=== PATIENT | male | born 1960 | race Caucasian/White ===

== ENCOUNTER 2018-05-14 03:18 | Inpatient (IN) | payer OTHER ==
[2018-05-14] VITALS (7 sets, daily range): BP systolic 96–126; BP diastolic 54–100
[~2018-05-14] VITALS: Ht 177.8 cm; Wt 104.8 kg
--- NOTE | ~2018-05-14 | OP ---
[facility] [address] [place] [address] OPERATIVE REPORT Name: MAI WELLER Room: [address] IN .R.#: [id number] Admission: 05/14/18 Attend Phys: Saturnino Lieberman Discharge: Date of : 60 Report #: [id number] THIS REPORT FOR: //name// CC: [facility] Roberto Zheng DATE OF SERVICE: 05/14/2018 PREOPERATIVE DIAGNOSES: Right ureteropelvic junction stone, possible urinary tract infection. POSTOPERATIVE DIAGNOSES: Right ureteropelvic junction stone, possible urinary infection. PROCEDURE: Cystourethroscopy, right retrograde pyelogram and right ureteral stent placement (6 x 26). SURGEON: Radha Holley MD ANESTHESIA: General. ESTIMATED BLOOD LOSS: None. COMPLICATIONS: None. SPECIMENS: None. INDICATION FOR PROCEDURE: The patient is a 58-year-old male who presented with right flank pain. An 8 mm stone was seen at the right UPJ on CT scan. Although his white count was normal, his urinalysis was questionable for infection with some bacteria present. He had no renal dysfunction. Given his possible bladder infection, it was recommended he undergo stent placement only, with treatment of this infection with need for stone intervention at a later date after antibiotic treatment. Risks of procedure were discussed including but not limited to infection; bleeding; injury to the urethra, bladder, ureters; and need for secondary procedures; stent pain; cardiopulmonary complications. He voiced understanding and wishes to proceed. DESCRIPTION OF PROCEDURE: After informed consent was obtained, the patient was taken back to the operating suite and placed supine. After induction of general anesthesia, he was placed in dorsal lithotomy position. Genitalia were prepped and draped in standard fashion. Attempted to place the 22-Hungarian cystoscope, but he had some tightness in the fossa area; therefore, a Geary's were used to serially dilate from 18-Hungarian to 24-Hungarian without difficulty. I was then able to place the 22-Hungarian cystoscope without difficulty[place] [address] OPERATIVE REPORT Name: MAI WELLER Room: [address] IN [facility]#: [id number] Admission: 05/14/18 Attend Phys: Saturnino Lieberman Discharge: Date of : 60 Report #: [id number] normal. There was no stricture. Prostate was nonobstructive and short. Bladder was inspected. There were no tumors, stones or diverticula. There were no trabeculations. A retrograde was performed on the right side with a cone tip catheter. This revealed a filling defect in the proximal ureter and that stone did blow back, looks like into the kidney with the contrast jet. He did not really have significant hydronephrosis, maybe mild. A sensor wire was placed and there was efflux of some concentrated urine and debris, but did not appear frankly purulent. A 6-Hungarian x 26-cm double-J stent was threaded over the wire. Good curl was seen within the upper pole calyces and good curl was seen in the bladder. I did try to adjust the proximal curl into the renal pelvis, but there was not really a lot of room, so I left that alone. The bladder was then drained and the scope was removed and 5 mL of lidocaine jelly were placed per urethra for local anesthesia. He was awoken, extubated and taken to recovery in satisfactory condition. He will be admitted to the floor and if afebrile for 24 hours, he can be dismissed home on oral antibiotics and follow up with me to discuss stone treatment. By: [id number] Holley MD /nt
[~2018-05-14 03:18] MED LIST: ALDACTONE25 MG PO; ALDACTONE50 MG PO; BAYER CHEWABLE81 MG PO; BRILINTA90 MG PO; CARVEDILOL12.5 MG PO; CRESTOR20 MG PO; LISINOPRIL10 MG PO; NITROGLYCERIN0.4 MG SL
[2018-05-14 04:12] LABS: ABSOLUTE BASOPHILS 0.1 thou/uL (0.0-0.2); ABSOLUTE EOSINOPHILS 0.2 thou/uL (0.0-0.7); ABSOLUTE MONOCYTES 0.8 thou/uL (0.0-1.2); ABSOLUTE NEUTROPHILS 2.9 thou/uL (1.6-8.1); BASOPHILS 1.4 %; EOSINOPHILS 3.7 %; HEMOGLOBIN 15.1 gm/dL (14.0-18.0); LYMPHOCYTES 33.6 %; MCH 31.7 pg (26.0-34.0); MCHC 34.4 g/dL (28.0-37.0); MCV 92.2 fL (80.0-100.0); MPV 7.7 fl. (7.2-11.1); NUCLEATED RBCS 0 /100WBC; PLATELET COUNT* 256 thou/uL (150-400); POLYS 48.3 %; RBC 4.78 mil/uL (4.50-6.00); RDW-CV 13.5 % (10.5-14.5)
[2018-05-14 04:30] LABS: URINE BILIRUBIN NEGATIVE (Negative); URINE BLOOD 2+ (Negative); URINE CLARITY CLEAR; URINE COLOR YELLOW; URINE GLUCOSE-RANDOM NEGATIVE (Negative); URINE KETONES NEGATIVE (Negative); URINE LEUKOCYTES-REFLEX NEGATIVE (Negative); URINE NITRITE-REFLEX NEGATIVE (Negative); URINE PROTEIN NEGATIVE (Negative); URINE SPECIFIC GRAVITY >= 1.030 (1.005-1.030); URINE UROBILINOGEN 0.2 E.U./dl (0.2-1.0)
[2018-05-14 04:33] LABS: ALBUMIN 3.7 g/dL (3.4-5.0); ALKALINE PHOSPHATASE 38 U/L (46-116); ANION GAP 8 mmol/L (7-16); BUN 16 mg/dL (7-18); CALCIUM 8.7 mg/dL (8.5-10.1); CHLORIDE 106 mmol/L (98-107); CO2 28 mmol/L (21-32); CREATININE 0.9 mg/dL (0.6-1.3); GLUCOSE 113 mg/dL (70-99); LIPASE 186 U/L (73-393); POTASSIUM 4.3 mmol/L (3.5-5.1); SGOT 13 U/L (15-37); SGPT 20 U/L (30-65); SODIUM 142 mmol/L (136-145); TOTAL BILIRUBIN 0.3 mg/dL (<0.1-1.0); TOTAL PROTEIN 6.9 g/dL (6.4-8.2); TROPONIN-I LEVEL <0.06 ng/mL (<0.06)
[2018-05-14 05:24] LABS: SQUAMOUS >10 Many /LPF (0-3)
[2018-05-14 05:25] LABS: CASTS None Seen /LPF (None Seen); MUCUS 0-3 Light strn/LPF (None Seen); URINE RBC >20 Many /HPF (0-2); URINE WBC-REFLEX None Seen /HPF (0-5)
[2018-05-14 05:26] LABS: CRYSTALS None Seen /LPF (None Seen)
--- NOTE | 2018-05-14 15:58 | EKG ---
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 REYES : 1960 Requested By: Jeff Maria Order Number: [id number] MD: Claudio Parish Measurements Intervals [place] Rate: 66 P: 25 TX: 227 QRS: 23 QRSD: 108 T: 20 QT: 377 QTc: 395 Interpretive Statements Sinus rhythm Prolonged TX interval Low voltage, extremity leads Baseline wander in lead(s) I,III,aVR,aVL Compared to ECG 01/15/2013 08:30:24 First degree AV block now present Low QRS voltage now present Myocardial infarct finding no longer present ST (T wave) deviation no longer present Possible ischemia no longer present Prolonged QT interval no longer present Electronically Signed On 05-14-2018 15:58:29 CDT by Claudio Parish [email or web address] <ELECTRONICALLY SIGNED> By: Claudio Parish MD, [facility] 05/14/18 [id number] Claudio Parish MD, [facility] /EPI
[2018-05-15 04:00] VITALS: BP 91/49
[2018-05-15 06:41] LABS: ABSOLUTE LYMPHOCYTES 1.5 thou/uL (0.8-5.3); ABSOLUTE MONOCYTES 1.4 thou/uL (0.0-1.2); ABSOLUTE NEUTROPHILS 10.6 thou/uL (1.6-8.1); BASOPHILS 0.2 %; EOSINOPHILS 0.1 %; HEMATOCRIT 42.7 % (42.0-52.0); HEMOGLOBIN 14.3 gm/dL (14.0-18.0); LYMPHOCYTES 11.1 %; MCH 31.2 pg (26.0-34.0); MCHC 33.5 g/dL (28.0-37.0); MONOCYTES 10.5 %; MPV 8.1 fl. (7.2-11.1); NUCLEATED RBCS 0 /100WBC; PLATELET COUNT* 256 thou/uL (150-400); POLYS 78.1 %; RBC 4.59 mil/uL (4.50-6.00); RDW-CV 14.3 % (10.5-14.5); WBC 13.6 thou/uL (4.0-11.0)
[2018-05-15 06:51] LABS: CREATININE 0.9 mg/dL (0.6-1.3); POTASSIUM 4.2 mmol/L (3.5-5.1)
[2018-05-15 07:36] VITALS: BP 133/79
[2018-05-15 18:13] VITALS: BP 96/57
[2018-05-16 04:00] VITALS: BP 102/56
[2018-05-16 04:37] LABS: HEMATOCRIT 42.1 % (42.0-52.0); HEMOGLOBIN 14.1 gm/dL (14.0-18.0); MCH 32.2 pg (26.0-34.0); MCHC 33.5 g/dL (28.0-37.0); RBC 4.39 mil/uL (4.50-6.00); RDW-CV 14.8 % (10.5-14.5); WBC 10.2 thou/uL (4.0-11.0)
[2018-05-16 05:08] LABS: CALCIUM 8.3 mg/dL (8.5-10.1); CREATININE 0.7 mg/dL (0.6-1.3); POTASSIUM 4.6 mmol/L (3.5-5.1)
[2018-05-16] MEDS ORDERED: CIPRO500 MG PO (09:56)
[2018-05-16 10:31] VITALS: BP 102/56
[2018-05-16 15:24] VITALS: BP 102/56
[2018-05-16] MEDS ORDERED: NORCO 5-325 TA1 EACH PO (15:25)
[2018-05-16 15:38] VITALS: BP 102/56
== END 2018-05-16 15:35 | disposition home or self-care (01) | DRG 660 ==
LOC: M.ERS 03:18 → M.TBA-ER 04:56 → M.3W 04:56
PROVIDERS: Emergency Medicine; Family Medicine; Internal Medicine; ADMIT Internal Medicine
PROC: 0T768DZ Dilation of Right Ureter with Intraluminal Device, Via Natural or Artificial Opening Endoscopic (ICD-10-PCS; principal; 2018-05-14)
PROC: BT1D1ZZ Fluoroscopy of Right Kidney, Ureter and Bladder using Low Osmolar Contrast (ICD-10-PCS; principal; 2018-05-14)
DX: N13.0 Hydronephrosis with ureteropelvic junction obstruction (principal); R65.10 Systemic inflammatory response syndrome (SIRS) of non-infectious origin without acute organ dysfunction; E86.0 Dehydration; Z95.5 Presence of coronary angioplasty implant and graft; Z98.84 Bariatric surgery status; Z84.1 Family history of disorders of kidney and ureter

== ENCOUNTER 2020-08-29 15:56 | Emergency (ER) | payer OTHER ==
[~2020-08-29] VITALS: Ht 177.8 cm; Wt 108.9 kg
[~2020-08-29 15:56] MED LIST changes: +CIPRO500 MG PO; +NORCO 5-325 TA1 EACH PO
[2020-08-29 17:25] VITALS: BP 123/54
== END 2020-08-29 17:26 | disposition home or self-care (01) ==
LOC: M.ERS 15:56
DX: S51.812A Laceration without foreign body of left forearm, initial encounter (principal); W26.8XXA Contact with other sharp object(s), not elsewhere classified, initial encounter; Y93.89 Activity, other specified; Y92.89 Other specified places as the place of occurrence of the external cause; Y99.8 Other external cause status